=== PATIENT | male | born 1965 | race Caucasian/White ===

== ENCOUNTER 2024-04-26 16:51 | Emergency (ER) | payer SELFPAY ==
[2024-04-26] MEDS ORDERED: Morphine 4 MG/ML VIAL ONE (17:42)
[2024-04-26] MEDS ORDERED: Ondansetron PF 4 MG/2 ML Vial ONE (17:43)
[2024-04-26] MEDS ORDERED: Cefepime 2 GM VIAL ONE (17:43)
[2024-04-26 17:47] LABS: Hematocrit 47.4 % (42.0-52.0); Hemoglobin 15.8 g/dL (14.0-18.0); Mean Corpuscular HGB CONC 33.2 g/dL (32.0-36.0); Mean Corpuscular Hemoglobin 29.6 pg (27.0-31.0); Mean Corpuscular Volume 88.9 fl (78.0-98.0); Mean Platelet Volume 7.6 fL (7.4-10.4); Platelet Count 349 10x3/uL (130-400); RBC Distribution Width 12.5 % (11.5-14.5); Red Blood Cell (RBC) Count 5.33 mill/uL (4.70-6.10); White Blood Cell (WBC) Count 16.4 10x3/uL (4.8-10.8)
[2024-04-26 17:52] LABS: INR-International Normal Ratio 1.2; Prothrombin Time 14.7 sec (12.0-14.7)
[2024-04-26 17:53] LABS: PTT 31.6 sec (22.9-36.1)
[2024-04-26 17:57] LABS: Band 2 % (5-11); Lymphocytes 2 % (21-51); MDiff Complete? YES; Manual Diff?? YES; Monocytes 4 % (0-10); Neutrophil 81 % (42-75); Platelet Adequacy Comment Appears Adequate; RBC Morph Comment Within Normal Limits; Reactive Lymphocytes 11 % (0-10)
[2024-04-26 18:02] LABS: ALT (SGPT) 24 U/L (Less than 45); AST (SGOT) 29 U/L (11-34); Albumin 2.9 g/dL (3.1-4.5); Alkaline Phosphatase 136 U/L (40-110); Anion Gap 20 mmol/L (10-20); BUN (Urea Nitrogen) 17 mg/dL (8.4-25.7); Bilirubin, Total 2.3 mg/dL (0.3-1.2); Calc. Creatinine Clearance 0 mL/min (70-130); Carbon Dioxide 19 mmol/L (22-29); Chloride 102 mmol/L (98-107); Estimated GFR 98; Globulin 5.4 g/dL (2.4-3.5); Glucose 268 mg/dL (70-105); Potassium 3.6 mmol/L (3.5-5.1); Protein, Total 8.3 g/dL (6.0-8.3); Sodium 137 mmol/L (136-145)
[2024-04-26] MEDS ORDERED: Labetalol HCl 100 MG/20 ML VIAL ONE (18:17)
[2024-04-26] MEDS ORDERED: Vancomycin 1 GM VIAL ONE (22:11)
== END 2024-04-27 01:00 | disposition short-term general hospital (02) ==
LOC: MADERS 16:51
DX: A41.9 Sepsis, unspecified organism (principal); L03.116 Cellulitis of left lower limb; I10 Essential (primary) hypertension; E11.621 Type 2 diabetes mellitus with foot ulcer
CPT/HCPCS: 36415; 80053; 83605; 83880; 85025; 85610; 85730; 86140; 87040; 87070; 87149; 87205; 93005; 94760; 96361; 96365; 96366; 96367; 96375; J0692; J2270; J2405; J3370